=== PATIENT | female | born 1945 | race Caucasian/White ===

== ENCOUNTER → 2017-04-22 | Outpatient (CLI) | payer OTHER, BC ==
[~2017-04-22] VITALS: Ht 165.1 cm; Wt 72.7 kg
[~2017-04-22] MED LIST: ASPIR 8181 M1 PO; CALCIUM + D SO1 EACH PO; ESSENTIAL WOMA1 EAC1 PO; LIPITOR20 MG PO; TIROSINT25 MCG PO; VITAMIN D400 UNIT PO
== END | disposition home or self-care (01) ==
LOC: AMB 11:01
PROC: 0DJD8ZZ Inspection of Lower Intestinal Tract, Via Natural or Artificial Opening Endoscopic (ICD-10-PCS; principal; 2017-04-22)
DX: K57.30 Diverticulosis of large intestine without perforation or abscess without bleeding (principal); K21.9 Gastro-esophageal reflux disease without esophagitis; E78.5 Hyperlipidemia, unspecified; E03.9 Hypothyroidism, unspecified; M81.0 Age-related osteoporosis without current pathological fracture; N28.1 Cyst of kidney, acquired; E55.9 Vitamin D deficiency, unspecified; Z79.82 Long term (current) use of aspirin; Z85.828 Personal history of other malignant neoplasm of skin; Z88.2 Allergy status to sulfonamides; Z88.8 Allergy status to other drugs, medicaments and biological substances; Z91.040 Latex allergy status; Z91.030 Bee allergy status